=== PATIENT | female | born 1970 | race Two or more races ===

== ENCOUNTER → 2016-05-04 | Outpatient (CLI) | payer OTHER ==
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
== END ==
LOC: BMCIMAGING 16:16
PROVIDERS: ATTEND Family Medicine
DX: M54.2 Cervicalgia (principal)